=== PATIENT | male | born 1995 | race Caucasian/White ===

== ENCOUNTER 2016-11-09 12:22 | Emergency (ER) | payer BC ==
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
--- NOTE | 2016-11-09 13:37 | ED ORDER SUMMARY ---
..... Patient: ZANDRA MCCARTHY OrderSheet [facility] VisitID: [id number] [place] [address] 21y, M Registration Date/Time: 11/09/2016 ORDER SHEET Weight: 81.6 kg (stated) Allergies: None GENERAL ORDERS: CT Head wo Cont Urgent (12:29 11/09/2016 EKoroleva P.A.-C) (Ack 12:39 PWeiler ER Tech1) (13:04 PWeiler ER Tech1) CT Cervical Spine wo Cont Urgent (12:30 11/09/2016 EKoroleva P.A.-C) (Ack 12:39 PWeiler ER Tech1) (13:04 PWeiler ER Tech1) CT Thorax/Abd/Pelvis w Cont (No) (see lab) Urgent (12:30 11/09/2016 EKoroleva P.A.-C) (Ack 12:39 PWeiler ER Tech1) (13:04 PWeiler ER Tech1) CBC w Diff Urgent (12:30 11/09/2016 EKoroleva P.A.-C) (Ack 12:39 PWeiler ER Tech1) (12:40 PWeiler ER Tech1) CMP Urgent (12:30 11/09/2016 EKoroleva P.A.-C) (Ack 12:39 PWeiler ER Tech1) (12:40 PWeiler ER Tech1) PT with INR Urgent (12:30 11/09/2016 EKoroleva P.A.-C) (Ack 12:39 PWeiler ER Tech1) (12:40 PWeiler ER Tech1) PTT Urgent (12:30 11/09/2016 EKoroleva P.A.-C) (Ack 12:39 PWeiler ER Tech1) (12:40 PWeiler ER Tech1) Urine Drug Screen Urgent (12:30 11/09/2016 EKoroleva P.A.-C) (Ack 12:39 PWeiler ER Tech1) (Cancelled: Physician Order- patient unable to provide sample prior to DC 13:41 Nguyen Deras.N.) Ethyl Alcohol Urgent (12:30 11/09/2016 Devin Cruz) (Ack 12:39 PWeiler ER Tech1) (12:40 PWeiler ER Tech1) MEDICATION ORDERS: IV FLUIDS: IV Saline Lock (12:34 11/09/2016 Brook German per protocol) (12:34 Brook German) ORDER SHEET NOTES: [Electronically signed by Christiano Fox R.N. (13:49 11/09/2016)] [Electronically signed by Anali Anderson P.A.-C (14:02 11/09/2016)] [Electronically locked/signed by Christiano oFx R.N. (13:49 11/09/2016)]
--- NOTE | 2016-11-09 13:37 | ED ORDER SUMMARY ---
..... Patient: ZANDRA MCCARTHY OrderSheet [facility] VisitID: [id number] [place] [address] 21y, M Registration Date/Time: 11/09/2016 ORDER SHEET Weight: 81.6 kg (stated) Allergies: None GENERAL ORDERS: CT Head wo Cont Urgent (12:29 11/09/2016 EKoroleva P.A.-C) (Ack 12:39 PWeiler ER Tech1) (13:04 PWeiler ER Tech1) CT Cervical Spine wo Cont Urgent (12:30 11/09/2016 EKoroleva P.A.-C) (Ack 12:39 PWeiler ER Tech1) (13:04 PWeiler ER Tech1) CT Thorax/Abd/Pelvis w Cont (No) (see lab) Urgent (12:30 11/09/2016 EKoroleva P.A.-C) (Ack 12:39 PWeiler ER Tech1) (13:04 PWeiler ER Tech1) CBC w Diff Urgent (12:30 11/09/2016 EKoroleva P.A.-C) (Ack 12:39 PWeiler ER Tech1) (12:40 PWeiler ER Tech1) CMP Urgent (12:30 11/09/2016 EKoroleva P.A.-C) (Ack 12:39 PWeiler ER Tech1) (12:40 PWeiler ER Tech1) PT with INR Urgent (12:30 11/09/2016 EKoroleva P.A.-C) (Ack 12:39 PWeiler ER Tech1) (12:40 PWeiler ER Tech1) PTT Urgent (12:30 11/09/2016 EKoroleva P.A.-C) (Ack 12:39 PWeiler ER Tech1) (12:40 PWeiler ER Tech1) Urine Drug Screen Urgent (12:30 11/09/2016 EKoroleva P.A.-C) (Ack 12:39 PWeiler ER Tech1) (Cancelled: Physician Order- patient unable to provide sample prior to DC 13:41 Nguyen Deras.N.) Ethyl Alcohol Urgent (12:30 11/09/2016 Devin Cruz) (Ack 12:39 PWeiler ER Tech1) (12:40 PWeiler ER Tech1) MEDICATION ORDERS: IV FLUIDS: IV Saline Lock (12:34 11/09/2016 Brook German per protocol) (12:34 Brook German) ORDER SHEET NOTES: [Electronically signed by Christiano Fox R.N. (13:49 11/09/2016)] [Electronically signed by Anali Anderson P.A.-C (14:02 11/09/2016)] [Electronically locked/signed by Christiano Fox R.N. (13:49 11/09/2016)]
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
--- NOTE | 2016-11-09 14:02 | ED MED RECONCILIATION SUMMARY ---
Patient: ZANDRA MCCARTHY Medication Reconciliation Report [facility] VisitID: [id number] [place] [address] 21y, M Registration Date/Time: 11/09/2016 Weight: 81.6 kg Height/Length: 72 in. BMI: 24.4 ALLERGIES: None The patient's Home Medications are listed below: NONE. The source(s) of the original Home Medication information: Not obtained. The following Medications were given to the patient in the Emergency Department: None. The following Medications were prescribed to the patient: Zofran (orally disintegrating tablets) 4 mg: take 1 orally every 6 hours for 3 days as needed for nausea. Dispense ten (10). No refill. Substitution is permissible. -- Anali Anderson, P.A.-Ayesha Motrin 800 mg tablets: take 1 tablet orally every 8 hours for 3 days. Dispense fifteen (15). No refill. Substitution is permissible. -- Anali Anderson, P.A.-C
--- NOTE | 2016-11-09 14:02 | ED MAR SUMMARY ---
..... Medication Administration Record [facility] [address] [place], [place] [id number] Patient: ZANDRA MCCARTHY Visit ID: [id number] 21y, M Weight: 81.6 kg Height/Length: 72 in BMI: 24.4 ALLERGIES: None
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
--- NOTE | 2016-11-09 14:02 | ED MAR SUMMARY ---
..... Medication Administration Record [facility] [address], [place] [id number] Patient: ZANDRA MCCARTHY Visit ID: [id number] 21y, M Weight: 81.6 kg Height/Length: 72 in BMI: 24.4 ALLERGIES: None
--- NOTE | 2016-11-09 14:02 | ED MED RECONCILIATION SUMMARY ---
Patient: ZANDRA MCCARTHY Medication Reconciliation Report [facility] VisitID: [id number] [place] [address] 21y, M Registration Date/Time: 11/09/2016 Weight: 81.6 kg Height/Length: 72 in. BMI: 24.4 ALLERGIES: None The patient's Home Medications are listed below: NONE. The source(s) of the original Home Medication information: Not obtained. The following Medications were given to the patient in the Emergency Department: None. The following Medications were prescribed to the patient: Zofran (orally disintegrating tablets) 4 mg: take 1 orally every 6 hours for 3 days as needed for nausea. Dispense ten (10). No refill. Substitution is permissible. -- Anali Anderson, P.A.-Ayesha Motrin 800 mg tablets: take 1 tablet orally every 8 hours for 3 days. Dispense fifteen (15). No refill. Substitution is permissible. -- Anali Anderson, P.A.-C
== END 2016-11-09 13:46 | disposition home or self-care (01) ==
LOC: ED SRH 12:22
DX: S06.9X9A Unspecified intracranial injury with loss of consciousness of unspecified duration, initial encounter (principal); S20.411A Abrasion of right back wall of thorax, initial encounter; V28.1XXA Motorcycle passenger injured in noncollision transport accident in nontraffic accident, initial encounter; Y93.89 Activity, other specified; Y99.9 Unspecified external cause status; Y92.9 Unspecified place or not applicable
CPT/HCPCS: 90100; 92010; 94001; 94060; 95059